=== PATIENT | female | born 1950 | race Caucasian/White ===

== ENCOUNTER 2017-09-26 07:48 | Emergency (ER) | payer MEDICARE, SELFPAY ==
[2017-09-26 07:49] VITALS: PULSE 90; RESP 16; TEMP 36.7; O2SAT 97; BMI 19.3
--- NOTE | 2017-09-26 08:00 | CT_ITS ---
STUDY: CT BRAIN WITHOUT CONTRAST REASON FOR EXAM: Female, 67 years old. History of fall. RADIATION DOSAGE (If Supplied By Facility): CTDIvol = ( 44.99 ) mGy, DLP = ( 812.98 ) mGycm TECHNIQUE: Transaxial CT imaging of the brain was performed without administration of intravenous contrast material. Individualized dose optimization techniques were used for this CT. COMPARISON: None. FINDINGS: Normal soft tissue structures. Normal calvarium. There is evidence of a small right acute subdural hematoma overlying the right frontal, temporal parietal lobes. There is also evidence of a subdural of the cerebellar tentorium more prominent on the left side. The widest part of the subdural hematoma measures 13.1 mm. A small subdural hematoma is also seen along the anterior aspect of the cerebral falx. There is a 7 mm midline shift from [id number]. Normal white matter tracts of the cerebral hemispheres. Normal basal ganglia and thalami. Normal brainstem. Normal cerebellum. There are no findings of an acute ischemic infarction. Atherosclerotic calcification of the vertebral arteries and cavernous portions of the internal carotid arteries bilaterally. Normal visualized paranasal sinuses. CT/Brain/Head without Contrast IMPRESSION: Left acute subdural hematoma as described. Midline shift from [id number]. Small subdural hematoma within the left cerebellar tentorium and left cerebral falx. N.B. : The above information has been verbally conveyed by Wilder Casarez MD to Brock Sosa on 09/26/2017 08:42:51 (ET). Electronically Signed: Wilder Casarez MD at 8:43 EDT Tel [phone], Service support , N.B. : The above information has been verbally conveyed by Wilder Casarez MD to Brock Sosa on 09/26/2017 08:42:51 (ET).
--- NOTE | 2017-09-26 08:00 | RAD_ITS ---
STUDY: X-RAY - RIGHT HUMERUS REASON FOR EXAM: Female, 67 years old. Right upper arm pain following a recent fall. TECHNIQUE: 2 view(s) of the humerus. COMPARISON: None. FINDINGS: The patient is status post reverse shoulder replacement. The alignment. There is no demonstrated fracture or osseous destructive process. Soft tissue swelling. RAD/Humerus min 2 Views IMPRESSION: Status post reverse shoulder replacement. Is good alignment. Soft tissue swelling. Electronically Signed: Wilder Casarez MD at 9:15 EDT Tel [phone], Service support ,
[2017-09-26 08:52] LABS: Absolute Lymphocyte Count 1.36 X10^3/ul (0.83-4.51); Absolute Neutrophil Count 9.6 X10^3/uL (2.0-7.7); Basophil# 0.01 X10^3/uL; Basophil% 0.1 % (0-1); Hematocrit 34.2 % (37-47); Lymphocyte # 1.36 X10^3/ul (4.0); Lymphocyte % 11.2 % (19-41); Mean Corp Hgb Conc 35.1 g/gl (32-36); Mean Corpuscular Hgb 31.2 pg (27.0-32.0); Mean Corpuscular Volume 88.8 fL (81-99); Mean Platelet Vol. 9.6 fl (6.2-12.0); Monocyte% 9.1 % (0-10); Neutrophil # 9.61 X10^3/uL (2.7-7.7); Neutrophil % 79.3 % (47-70); Platelet Count 251 K/mm3 (150-450); RBC Distribution Width CV 12.6 % (11.6-14.6); RBC Distribution Width SD 39.8 fl (35.1-43.9); Red Blood Count 3.85 M/mm3 (4.2-5.4); White Blood Count 12.1 K/mm3 (4.4-11.0)
[2017-09-26 08:53] LABS: POSITIVE COUNT NO; POSITIVE DIFFERENTIAL NO; POSITIVE MORPHOLOGY NO
[2017-09-26 08:56] LABS: Prothrombin Time (Protime)PT. 13.5 SECONDS (11.7-14.9)
--- NOTE | 2017-09-26 08:56 | ED.VISSUMM ---
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 Jones on Sunday. States that overnight she went into urinate and lost her balance pulling her pants down. She fell and hit her head. She denies loss of consciousness. However, she complains of a headache is 10 out of 10 severity. Reports she initially had neck pain but she denies any neck pain now. No back, wrist, or hip pain. She reports that she has right arm pain that is 6 out of 10 severity. Physical Examination: Vitals: Stable. Afebrile. Neck: No vertebral tenderness. Full ROM without difficulty. Cleared by NEXUS criteria. Back: No vertebral tenderness. General: A&O x 3. NAD. Cardiovascular exam: Regular rate and rhythm, no murmur, rub or gallop. Respiratory exam: Chest nontender. No crepitus. Clear to auscultation bilaterally. No wheezes or stridor. Abdominal exam: Soft, nontender, nondistended, normal bowel sounds. No pain in RUQ or LUQ specifically. No peritoneal signs. Extremity: Severe tenderness to palpation over the right humerus. There is a contusion to the distal portion of this. She reports that this was there prior to the fall. He is neurovascularly intact distal to this. Test Results: Right humerus x-ray shows the hardware to be intact without fracture. CT brain shows a subdural on the left with 7 mm midline shift. Emergency Department Course and Treatment: Patient was placed in a c-collar. She was given Dilaudid and Zofran IV. Her blood pressure is in the 160s systolic at this time. The patient is awake and alert. She denies pain at this time. She denies any nausea. Treatment Plan: The patient was discussed with Dr. Verdni, at [facility], who is accepted her in transfer. Disposition: Transferred in critical condition. Impression: 1. Fall. 2. Left subdural hematoma. 3. 2 days status post right shoulder replacement. 4. Critical care time 30 minutes. This note was generated with [employer] dictation software. It may contain incorrect words, spelling, and punctuation that were not noted in review of the chart prior to signing ED Disposition - Plan for ED Patient: Chief Complaint: Upper Extremity Injury
[2017-09-26] MEDS: 0.9% Normal Saline 1,000 ML 1000 ML IV (08:58)
--- NOTE | 2017-09-26 09:00 | ED.DCSUM_ITS ---
- ER Visit Summary Date of Service: 09/26/17 Chief Complaint: Fall History of Present Illness: The patient is a 67 F who was discharged from [facility] yesterday at 3 PM after having a total reverse replacement of her right shoulder by Dr. Jones on Sunday. States that overnight she went into urinate and lost her balance pulling her pants down. She fell and hit her head. She denies loss of consciousness. However, she complains of a headache is 10 out of 10 severity. Reports she initially had neck pain but she denies any neck pain now. No back, wrist, or hip pain. She reports that she has right arm pain that is 6 out of 10 severity. Physical Examination: Vitals: Stable. Afebrile. Neck: No vertebral tenderness. Full ROM without difficulty. Cleared by NEXUS criteria. Back: No vertebral tenderness. General: A&O x 3. NAD. Cardiovascular exam: Regular rate and rhythm, no murmur, rub or gallop. Respiratory exam: Chest nontender. No crepitus. Clear to auscultation bilaterally. No wheezes or stridor. Abdominal exam: Soft, nontender, nondistended, normal bowel sounds. No pain in RUQ or LUQ specifically. No peritoneal signs. Extremity: Severe tenderness to palpation over the right humerus. There is a contusion to the distal portion of this. She reports that this was there prior to the fall. He is neurovascularly intact distal to this. Test Results: Right humerus x-ray shows the hardware to be intact without fracture. CT brain shows a subdural on the left with 7 mm midline shift. Emergency Department Course and Treatment: Patient was placed in a c-collar. She was given Dilaudid and Zofran IV. Her blood pressure is in the 160s systolic at this time. The patient is awake and alert. She denies pain at this time. She denies any nausea. Treatment Plan: The patient was discussed with Dr. Verdin, at [facility] , who is accepted her in transfer. Disposition: Transferred in critical condition. Impression: 1. Fall. 2. Left subdural hematoma. 3. 2 days status post right shoulder replacement. 4. Critical care time 30 minutes. This note was generated with [employer] dictation software. It may contain incorrect words, spelling, and punctuation that were not noted in review of the chart prior to signing ED Disposition - Plan for ED Patient: Chief Complaint: Upper Extremity Injury
[2017-09-26 09:01] VITALS: BP 175/109; PULSE 84; RESP 13; O2SAT 96
[2017-09-26 09:04] LABS: Anion Gap 8 (5-15); BUN 14 mg/dL (7-18); BUN/Creat Ratio 22.8 RATIO (10-20); Calcium,Total 8.5 mg/dL (8.5-10.1); Chloride 99 mmol/L (98-107); Creatinine, Serum 0.62 mg/dL (0.55-1.02); EST Glomerular Filtration Rate 102 mL/min (>60); Est Glom Filt Rate - Afr Amer 124 mL/min (>60); Estimated Creatinine Clearance 45.62 ml/min; Glucose 107 mg/dL (74-106); Sodium Level 135 mmol/L (136-145)
[2017-09-26] MEDS: HYDROmorphone 1 MG/ML Syringe IV (09:04)
[2017-09-26] MEDS: Ondansetron 4 MG/2 ML Vial IV (09:05)
[2017-09-26 09:18] VITALS: BP 175/109; PULSE 76; RESP 13; O2SAT 97
== END 2017-09-26 09:20 | disposition short-term general hospital (02) ==
PROVIDERS: Emergency Provider Emergency Medicine
DX: S06.5X0A Traumatic subdural hemorrhage without loss of consciousness, initial encounter (principal); S40.021A Contusion of right upper arm, initial encounter; W18.30XA Fall on same level, unspecified, initial encounter; Y93.9 Activity, unspecified; Y92.9 Unspecified place or not applicable; Y99.9 Unspecified external cause status; Z96.611 Presence of right artificial shoulder joint
CPT/HCPCS: 51702; 70450; 73060; 80048; 85025; 85610; 85730; 96374; 96375; 99285; J7030; A4216; J2405